=== PATIENT | male | born 1995 | race Caucasian/White ===

== ENCOUNTER 2020-08-12 21:39 | Emergency (ER) | payer OTHER ==
[~2020-08-12] VITALS: Ht 182.9 cm; Wt 68.0 kg
[~2020-08-12 21:39] MED LIST: NOHOMEMEDICATIONS
[2020-08-12] MEDS ORDERED: PREDNISONE 10 M10 M1 PO (22:00)
[2020-08-12] MEDS ORDERED: AMOX TR-K CLV1 EAC4 PO (22:00)
[2020-08-12 23:27] LABS: ABSOLUTE NEUTROPHILS 9.5 thou/uL (1.4-8.2); BASOPHILS 0.2 % (0.0-2.0); HEMATOCRIT 39.2 % (42.0-52.0); LYMPHOCYTES 4.9 % (24.0-44.0); MCH 30.9 pg (26.0-34.0); MCHC 33.2 g/dL (28.0-37.0); MCV 93.2 fL (80.0-100.0); MONOCYTES 4.1 % (1.0-8.0); PLATELET COUNT 197 thou/uL (150-400); POLYS 90.8 % (36.0-66.0); RDW 12.8 % (10.5-14.5); WBC 10.4 thou/uL (4.0-11.0)
[2020-08-12 23:34] LABS: ALBUMIN 3.9 g/dL (3.4-5.0); ANION GAP 11 mmol/L (7-16); BUN 18 mg/dL (7-18); CHLORIDE 103 mmol/L (98-107); CO2 25 mmol/L (21-32); CREATININE 1.1 mg/dL (0.7-1.3); DIRECT BILIRUBIN < 0.1 mg/dL (<0.1-0.2); GLUCOSE 146 mg/dL (74-106); LIPASE 95 U/L (73-393); POTASSIUM 4.2 mmol/L (3.5-5.1); SGOT 17 U/L (15-37); SGPT 29 U/L (30-65); SODIUM 139 mmol/L (136-145); TOTAL BILIRUBIN 0.3 mg/dL (0.2-1.0); TOTAL PROTEIN 6.8 g/dL (6.4-8.2)
[2020-08-12 23:35] LABS: CALCIUM 9.3 mg/dL (8.5-10.1)
[2020-08-13 00:59] VITALS: BP 99/48
== END 2020-08-13 01:09 | disposition home or self-care (01) ==
LOC: ER 21:39
PROVIDERS: Emergency Medicine
DX: R10.12 Left upper quadrant pain (principal); R11.2 Nausea with vomiting, unspecified; Z79.899 Other long term (current) drug therapy